=== PATIENT | male | born 1960 | race Caucasian/White ===

== ENCOUNTER 2019-08-12 07:33 | Emergency (ER) | payer BC ==
--- OUTSIDE RECORDS SUMMARY | 2019-08-12 07:35 | XMS REPORT ---
:1960 Author Organization [facility] t Address [address] [place] [address] Dr. Holcomb [address] [place] [id number] Care Team Providers Name Role Phone MARYAM FRANCISCO Unavailable Unavailable Problems This patient has no known problems. Allergies, Adverse Reactions, Alerts This patient has no known allergies or adverse reactions. Medications This patient has no known medications. Results Test Description Test Time Test Comments Text Results Atomic Results Result Comments TISSUE EXAM 2018-09-25 10:55:00 Surgical Pathology Re port Case: [id number] Authorizing Provider: Jaycob Whitlock Collected: [id number] MD Humera Ordering Location: [facility] Endoscopy Received: [phone] Service s Pathologist: López Kathleen MD Specimens: A) - Polyp, Col on - Right/Ascending, POLYP #1 TAKEN BY EMR B) - Polyp, Colon - Right/Ascending, POLYP #2 TAKEN BY COLD SNARE C) - Polyp, Colon - Transverse, TAKEN BY HOT SNARE W/ LIFT D) - Polyp, Colon - Sigmoid, POLYP TAKEN BY HOT SNARE W/LIFT A. COLON, RIGHT/ASCENDING PO LYP#1, ENDOSCOPIC MUCOSAL RESECTION: - TUBUL AR ADENOMA - NEGATIVE FOR HIGH-GRADE DYSP LASIA/ MALIGNANCY - MARGIN FREE OF ADENOMATOUS E PITHELIUMB. COLON, RIGHT/ASCENDING POLYP#2, BIO PSY: - TUBULAR ADENOMAC. COLON, TRANSVERSE POLYP, BIOPSY: - TUBULAR ADENOMAD. COLON, SIG MOID POLYP, BIOPSY: - TUBULAR ADENOMA Signin g Pathologist Direct Phone Line: [phone] tronically signed by López Elizabeth MD on 09/25/2018 at 10:55 [id number]: colonosc opy with polypectomy, EMR, using submucosal inject ion and clips x3Pre and postop diagnosis: high g rade dysplasia and colonic adenomaA. Right/asce nding colon polyp #1, taken by EMR; B. Right/ascen ding colon polyp #2, taken by cold snare; C. Tamez sverse colon polyp taken by hot snare with lift ; D. Sigmoid colon polyp taken by hot snare wit h liftThe specimens is received in four parts la beled with the patient's name, Jamal Jauregui" and accession number [id number] which corresponds to the accompanying requisition. S pecimen A is received in a biohazard bag in formal in labeled "right/ascending colo polyp" and consists of a rees-pink lobulated polyp jay suring 0.6 x 0.4 x 0.4 cm attached to a portion of cook mucosa measuring 1.4 x 0.7 x 0.4 cm . The resection margin is inked blue and the specimen is bisected to reveal a firm hemorrhagic cut surface. The specimen is submitted entire ly in one cassette. Specimen B is received in same biohazard bag in formalin labeled "right/a scending colon polyp" and consists of a single irr egular fragment of rees tissue measuring 0.3 x 0 .2 x 0.1 cm which is submitted in toto in one yesica sette. Specimen C is received in the same biohaza rd bag in formalin labeled "transverse colon po lyp" and consists of a single rees-pink polyp murray uring 0.6 x 0.4 x 0.2 cm. The resection margin is inked blue and the specimen is bisected and sub mitted entirely in one cassette. Specimen D is received in the same biohazard bag in formalin la beled "sigmoid colon polyp" and consists of a sin gle irregular fragment of rees tissue measu ring 0.7 x 0.2 x 0.1 cm which is submitted in tot o in one cassette. AG/pl Performed.
[2019-08-12] MEDS ORDERED: TETRACAINE HCL 0.5% 4ML OPTH ONE (07:51)
[2019-08-12] MEDS ORDERED: FLUORESCEIN SODIUM 1 MG/WRAP ONE (07:51)
--- NOTE | 2019-08-12 08:10 | EDPHYS ---
Physician Documentation [facility] Name: Jamal Saul Age: 59 yrs Sex: Male : 1960 Arrival Date: 08/12/2019 Time: 07:36 Bed 20 Private MD: ED Physician John Dodson HPI: 08/11 07:59 This 59 yrs old Male presents to ER via Ambulatory with complaints of ps1 swelling in right eyelid. 07:59 Patient states that two days ago he was at work. 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 He said that he did not see a FB and cleaned his eye out after the event. He states that his eyelid became inflamed and a round lump started forming on the upper lid. Appears cw hordeolum. No FB sensation in eye. . Historical: - Allergies: 07:50 No Known Allergies; ph - Home Meds: 07:50 None [Active]; ph - PMHx: 07:50 None; ph - PSHx: 07:50 shoulder; ph - Immunization history:: Adult Immunizations unknown. - Social history:: Smoking status: Patient denies any tobacco usage or history of. ROS: 07:59 Constitutional: Negative for fever, chills, and weight loss, ENT: Negative for injury, ps1 pain, and discharge, Cardiovascular: Negative for chest pain, palpitations, and edema, Respiratory: Negative for shortness of breath, cough, wheezing, and pleuritic chest pain, Abdomen/GI: Negative for abdominal pain, nausea, vomiting, diarrhea, and constipation, MS/Extremity: Negative for injury and deformity. Exam: 07:59 Visual Acuity: I have reviewed the nursing documentation. ps1 07:59 Constitutional: This is a well developed, well nourished patient who is awake, alert, and in no acute distress. Head/Face: Normocephalic, atraumatic. 07:59 Eyes: Periorbital structures: appear normal, Pupils: equal, round, and reactive to light and accomodation, Extraocular movements: intact throughout, Conjunctiva: normal, Corneas: are normal, abrasion, is not appreciated, foreign body, is not appreciated, a fluorescein strip employed to appreciate the findings, Lids and lashes: stye, seen on the right lid. 07:59 Chest/axilla: Inspection: normal. 07:59 Cardiovascular: Rate: bradycardic. 07:59 Respiratory: Respirations: normal. 07:59 Musculoskeletal/extremity: ROM: full active range of motion. 07:59 Skin: Appearance: normal. Vital Signs: 07:44 BP 167 / 88; Pulse 49; Resp 18; Temp 97.3; Pulse Ox 98% on R/A; Weight 79.38 kg; Height ph 5 ft. 9 in. (175.26 cm); 07:44 Body Mass Index 25.84 (79.38 kg, 175.26 cm) ph MDM: 08:05 Differential diagnosis: Corneal abrasion of right eye. Foreign body in right eye. ps1 Hordoleum. Counseling: I had a detailed discussion with the patient and/or guardian regarding: the historical points, exam findings, and any diagnostic results supporting the discharge/admit diagnosis, to return to the emergency department if symptoms worsen or persist or if there are any questions or concerns that arise at home. 08:09 Patient medically screened. ps1 08:11 Data reviewed: vital signs, nurses notes. ps1 08/11 08:17 Order name: Eye Tray; Complete Time: 08:17 ph 08/11 08:17 Order name: Fluoresene Opth strip; Complete Time: 08:18 ph Administered Medications: 08:00 Drug: Tetracaine Drops 0.5 % 1 drops Route: Ophthalmic; Site: right eye; ph 08:18 Follow up: Response: No adverse reaction ph Disposition: 08/12/19 08:09 Discharged to Home. Impression: Hordeolum externum right upper eyelid. - Condition is Stable. - Discharge Instructions: Stye. - Prescriptions for Ocuflox 0.3 % Ophthalmic Drops - instill 2 drop by OPHTHALMIC route every 6 hours for 2 days; 15 milliliter. - Medication Reconciliation Form, Thank You Letter, Antibiotic Education, Prescription Opioid Use form. - Follow up: Emergency Department; When: As needed; Reason: Fever > 102 F, Trouble breathing, Worsening of condition. - Problem is new. - Symptoms are unchanged. Signatures: Camilla Means RN RN ph John Dodson MD MD ps1 Corrections: (The following items were deleted from the chart) 08:38 08:09 08/12/2019 08:09 Discharged to Home. Impression: Hordeolum externum right upper ph eyelid. Condition is Stable. Forms are Medication Reconciliation Form, Thank You Letter, Antibiotic Education, Prescription Opioid Use. Follow up: Emergency Department; When: As needed; Reason: Fever > 102 F, Trouble breathing, Worsening of condition. Problem is new. Symptoms are unchanged. ps1
--- NOTE | 2019-08-12 08:10 | ER ---
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 Coronavirus screen: Proceed with normal triage. Patient denies a cough. Patient denies shortness of breath or difficulty breathing. Patient denies measured and/or subjective temperature greater than 100.4F prior to today's visit. Patient denies travel on a cruise ship or to a country the [facility] currently lists as an affected area. Patient denies contact with known and/or suspected case of COVID-19. Ebola Screen: No symptoms or risks identified at this time. Initial Sepsis Screen: Does the patient meet any 2 criteria? No. Patient's initial sepsis screen is negative. Does the patient have a suspected source of infection? No. Patient's initial sepsis screen is negative. Risk Assessment: Do you want to hurt yourself or someone else? Patient reports no desire to harm self or others. Onset of symptoms was August 12, 2019. 07:44 Method Of Arrival: Ambulatory ph 07:44 Acuity: TOLU 4 ph Historical: - Allergies: 07:50 No Known Allergies; ph - Home Meds: 07:50 None [Active]; ph - PMHx: 07:50 None; ph - PSHx: 07:50 shoulder; ph - Immunization history:: Adult Immunizations unknown. - Social history:: Smoking status: Patient denies any tobacco usage or history of. Screenin:50 Abuse screen: Denies threats or abuse. Denies injuries from another. Nutritional ph screening: No deficits noted. Tuberculosis screening: No symptoms or risk factors identified. Fall Risk None identified. Assessment: 07:51 Reassessment: Dr Dodson at bedside for eye exam. General: Appears in no apparent ph distress. comfortable, well groomed, Behavior is calm, cooperative, appropriate for age, Denies fever. Pain: Complains of pain in right eye Pain currently is 1 out of 10 on a pain scale. Neuro: Level of Consciousness is awake, alert, obeys commands, Oriented to person, place, time, situation. Cardiovascular: Capillary refill < 3 seconds in bilateral fingers Patient's skin is warm and dry. Respiratory: Airway is patent Respiratory effort is even, unlabored, Respiratory pattern is regular, symmetrical. EENT: Sclera/Cornea are clear in right eye and left eye Lid(s) w/ stye noted right upper eyelid. Derm: Skin is intact, is healthy with good turgor, Skin is pink, warm \\T\\ dry. Musculoskeletal: Circulation, motion, and sensation intact. Range of motion: intact in all extremities. Vital Signs: 07:44 BP 167 / 88; Pulse 49; Resp 18; Temp 97.3; Pulse Ox 98% on R/A; Weight 79.38 kg; Height ph 5 ft. 9 in. (175.26 cm); 07:44 Body Mass Index 25.84 (79.38 kg, 175.26 cm) ph ED Course: 07:36 Patient arrived in ED. am2 07:38 John Dodson MD is Attending Physician. ps1 07:44 Camilla Means, RN is Primary Nurse. ph 07:49 Triage completed. ph 07:50 Patient has correct armband on for positive identification. Call light in reach. Side ph rails up X 1. Pulse ox on. NIBP on. Door closed. Noise minimized. 07:53 Arm band placed on Patient placed in an exam room. ph 07:53 Assist provider with eye exam of right eye. using fluorescein stain, Performed by ph John Dodson MD Patient tolerated well. 07:54 Patient did not have IV access during this emergency room visit. ph Administered Medications: 08:00 Drug: Tetracaine Drops 0.5 % 1 drops Route: Ophthalmic; Site: right eye; ph 08:18 Follow up: Response: No adverse reaction ph Outcome: 08:09 Discharge ordered by . ps1 08:17 Discharged to home ambulatory. ph 08:17 Condition: good 08:17 Discharge instructions given to patient, Instructed on discharge instructions, follow up and referral plans. medication usage, Demonstrated understanding of instructions, follow-up care, medications, Prescriptions given X 1. 08:38 Patient left the ED. 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
[2019-08-12 08:50] VITALS: BP 167/88; TEMP 97.3; O2SAT 98
== END 2019-08-12 08:38 | disposition home or self-care (01) ==
LOC: ER 07:33
DX: H00.011 Hordeolum externum right upper eyelid (principal)
CPT/HCPCS: 99284